=== PATIENT | male | born 1935 | race Caucasian/White ===

== ENCOUNTER 2016-06-22 12:01 | Emergency (ER) | payer MEDICARE ==
--- NOTE | 2016-06-22 14:32 | CT ---
CT OF THE BRAIN WITHOUT CONTRAST: DATE: 06/22/16. FINDINGS: No intracranial bleeding or extraaxial hematoma was seen. The ventricles are normal in size for age and atrophy. There is no sign of stroke, mass, or edema. The calvarium appears intact. The sphen oid sinus and mastoid air cells are clear. There is obvious trauma around the right orbit and right maxillary sinus. See CT of the face to follow. IMPRESSION: No acute intracranial findings. See CT of the face to follow. POS: HOME
--- NOTE | 2016-06-22 15:14 | CT ---
CT OF THE FACIAL BONES: DATE: 06/22/16. FINDINGS: Spiral CT of the face was done following trauma. Axial slices were acquired, then coronal and sagit raciel reconstructions were done. There is a blowout fracture of the right orbit. The gap in the right inferior orbital wall is about 1.1 cm wide with fragments protruding into the right maxillary sinus. There is considerable bleedi ng in that sinus. Soft tissue air is seen in the periorbital region on the right, and there is air within the right orbit itself. The globe appears intact. The retroorbital areas show some air, but no other obvious damage. There may be a minimal fracture through the lateral wall of the right max illary sinus. The nasal bones and zygomatic arches are intact bilaterally. If there is a fracture of the lateral wall of the right orbit, it is minimal undisplaced. The medial wall appears intact. There is a small air-fluid level in the left maxillary sinus, but there is no obvious damage of this sinus or surrounding bones. The mandible appears intact. IMPRESSION: Blowout fracture of the right orbit as described above. There was no evidence of entrapment of soft tissue structures in the defect. Findings discussed with Dr. Mcgraw following scan. CODE CR POS: HOME
--- NOTE | 2016-06-22 15:38 | CT ---
CT OF THE CERVICAL SPINE: DATE: 06/22/16. FINDINGS: Spiral CT of the cervical spine was done emergently following trauma. Axial slices were acquired, t hen coronal reconstructions were done. Sagittal reconstructions were done as well. No acute fracture, dislocation, or acute bony change was appreciated. 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 The disk spaces are largely preserved. Some ossification in the ligamentum nuchae is s een. The C1 to dens distance is normal. The soft tissues are normal in thickness. Findings by frannie el follow: C1-C2: No acute findings. C2-C3: No acute findings. 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 Minor left foraminal narrowing. C4-C5: There is a large central posterior osteophyte that impinges upon the thecal sac at this level. This narrows t he AP diameter of the spinal canal to about 9 mm. The foramina are patent, though the left foramen is minimally narrower than the right. C5-C6: Once again, there is a central posterior osteophyte that impinges upon the thecal sac. Neve ping, the AP diameter here is nearly 12 mm. There is no foraminal stenosis. C6-C7: Some posterior osteophyte, though the narrowing of the AP diameter of the spinal canal is pr obably not significant as it measures about 13 mm. There is some slight bilateral foraminal narrowi ng due to osteophytes. C7-T1: No acute findings. T1-T2: No acute findings. The lung apices are clear and show no pneumothorax. IMPRESSION: Severe degenerative changes as noted, but no acute traumatic findings. POS: HOME
[2016-06-22] MEDS ORDERED: Lidocaine 1% 20 ML MDV ONE (15:40)
[2016-06-22] MEDS ORDERED: Adacel (T-DAP) 0.5 ML VIAL ONE (15:53)
[2016-06-22 16:33] LABS: #Lymphocytes 0.7 thou/uL (1.20-3.40); #Monocytes 0.4 thou/uL (0.11-0.59); #Neutrophils 8.3 thou/uL (1.40-6.50); %Basophils 0.3 % (0.0-1.0); %Eosinophils 0.3 % (0.0-10.0); %Monocytes 4.2 % (0.0-10.0); Mean Platelet Volume 6.3 fL (7.4-10.4); Red Blood Cell (RBC) Count 4.66 mill/uL (4.70-6.10); White Blood Cell (WBC) Count 9.4 thou/uL (4.8-10.8)
[2016-06-22 16:41] LABS: ALT (SGPT) 20 U/L (0-55); AST (SGOT) 27 U/L (5-34); Alkaline Phosphatase 70 U/L (40-150); Anion Gap 15 mmol/L (10-20); BUN (Urea Nitrogen) 19 mg/dL (8.4-25.7); Calc. Creatinine Clearance 0 mL/min (70-130); Carbon Dioxide 25 mmol/L (23-31); Chloride 104 mmol/L (98-107); Estimated GFR-MDRD 75; Globulin 2.8 g/dL (2.4-3.5); Protein, Total 6.9 g/dL (5.8-8.1)
[2016-06-22 16:45] LABS: Troponin I Less than 0.010 ng/mL (< 0.028)
== END 2016-06-22 17:52 | disposition home or self-care (01) ==
LOC: BURERS 12:01
DX: S02.81XA Fracture of other specified skull and facial bones, right side, initial encounter for closed fracture (principal); S01.01XA Laceration without foreign body of scalp, initial encounter; I95.2 Hypotension due to drugs; Z79.899 Other long term (current) drug therapy; X58.XXXA Exposure to other specified factors, initial encounter
CPT/HCPCS: 70450; 70486; 72125; 80053; 82553; 84484; 85025; 90471; 90715; 93005; 96360; J2001

== ENCOUNTER 2016-06-26 10:01 | Outpatient (CLI) | payer MEDICARE ==
[2016-06-26 11:05] LABS: #Eosinphils 0.3 thou/uL (0.0-0.7); #Monocytes 0.4 thou/uL (0.11-0.59); #Neutrophils 3.5 thou/uL (1.40-6.50); %Basophils 0.6 % (0.0-1.0); %Monocytes 7.7 % (0.0-10.0); ALT (SGPT) 24 U/L (0-55); AST (SGOT) 25 U/L (5-34); Alkaline Phosphatase 74 U/L (40-150); Anion Gap 11 mmol/L (10-20); BUN (Urea Nitrogen) 15 mg/dL (8.4-25.7); Bilirubin, Total 0.5 mg/dL (0.2-1.2); Calc. Creatinine Clearance 0 mL/min (70-130); Carbon Dioxide 29 mmol/L (23-31); Chloride 105 mmol/L (98-107); Estimated GFR-MDRD 77; Globulin 2.4 g/dL (2.4-3.5); Hematocrit 42.8 % (42.0-52.0); LDL Cholesterol, Calculated 94 mg/dL; Mean Platelet Volume 6.2 fL (7.4-10.4); Protein, Total 6.4 g/dL (5.8-8.1); Red Blood Cell (RBC) Count 4.53 mill/uL (4.70-6.10); White Blood Cell (WBC) Count 5.1 thou/uL (4.8-10.8)
== END 2016-06-26 10:02 | disposition home or self-care (01) ==
LOC: HPCALD 10:01
PROVIDERS: ATTEND Family Medicine
DX: Z13.6 Encounter for screening for cardiovascular disorders (principal); I10 Essential (primary) hypertension
CPT/HCPCS: 36415; 80053; 80061; 85025

== ENCOUNTER 2016-12-27 22:22 | Emergency (ER) | payer MEDICARE ==
[2016-12-27 22:54] LABS: #Lymphocytes 0.9 thou/uL (1.20-3.40); #Monocytes 0.7 thou/uL (0.11-0.59); #Neutrophils 2.9 thou/uL (1.40-6.50); %Basophils 0.6 % (0.0-1.0); %Eosinophils 0.6 % (0.0-10.0); %Lymphocytes 19.2 % (21.0-51.0); %Monocytes 14.9 % (0.0-10.0); %Neutrophils 64.8 % (42.0-75.0); Mean Corpuscular HGB CONC 34.5 g/dL (32.0-36.0); Mean Corpuscular Hemoglobin 31.8 pg (27.0-31.0); Mean Corpuscular Volume 92.2 fl (80.0-94.0); Mean Platelet Volume 6.4 fL (7.4-10.4); Platelet Count 144 thou/uL (130-400); RBC Distribution Width 11.9 % (11.5-14.5); Red Blood Cell (RBC) Count 4.41 mill/uL (4.70-6.10); White Blood Cell (WBC) Count 4.5 thou/uL (4.8-10.8)
[2016-12-27] MEDS ORDERED: Cephalexin 250 MG CAP ONE (23:03)
[2016-12-27 23:08] LABS: ALT (SGPT) 39 U/L (8-55); AST (SGOT) 44 U/L (5-34); Albumin 3.8 g/dL (3.4-4.8); Alkaline Phosphatase 99 U/L (40-150); Anion Gap 14 mmol/L (10-20); BUN (Urea Nitrogen) 24 mg/dL (8.4-25.7); Bilirubin, Total 0.6 mg/dL (0.2-1.2); CK (CPK) 175 U/L (30-200); Calc. Creatinine Clearance 0 mL/min (70-130); Calcium 9.8 mg/dL (7.8-10.44); Carbon Dioxide 23 mmol/L (23-31); Chloride 104 mmol/L (98-107); Estimated GFR-MDRD 65; Globulin 2.7 g/dL (2.4-3.5); Glucose 104 mg/dL (83-110); Potassium 3.9 mmol/L (3.5-5.1); Protein, Total 6.5 g/dL (5.8-8.1); Sodium 137 mmol/L (136-145)
== END 2016-12-27 23:22 | disposition home or self-care (01) ==
LOC: BURERS 22:22
DX: T63.331A Toxic effect of venom of brown recluse spider, accidental (unintentional), initial encounter (principal); L03.115 Cellulitis of right lower limb; G47.30 Sleep apnea, unspecified; I10 Essential (primary) hypertension; Z79.899 Other long term (current) drug therapy
CPT/HCPCS: 36415; 80053; 82550; 85025; 99283

== ENCOUNTER 2017-05-20 14:00 | Emergency (ER) | payer MEDICARE ==
[2017-05-20] MEDS ORDERED: HYDROcodone/Acetaminophen 10/325 mg Tablet ONE (14:31)
--- NOTE | 2017-05-20 15:25 | RAD ---
LEFT SHOULDER 3 VIEWS: DATE: 05/20/17. FINDINGS: A third-degree AC separation is seen with complete offset of the distal clavicle from the acromion. No fracture was visible. There is a question of some irregularity or flecks of bone near the inferio r lip of the glenoid fossa. This could signify a prior dislocation. IMPRESSION: Third-degree acromioclavicular separation. POS: HOME
== END 2017-05-20 14:59 | disposition home or self-care (01) ==
LOC: BURERS 14:00
DX: S43.102A Unspecified dislocation of left acromioclavicular joint, initial encounter (principal); I10 Essential (primary) hypertension; G47.30 Sleep apnea, unspecified; W17.89XA Other fall from one level to another, initial encounter

== ENCOUNTER 2018-12-22 15:04 | Outpatient (CLI) | payer MEDICARE ==
--- NOTE | 2018-12-22 18:16 | RAD ---
LEFT LEG TWO VIEWS: 12/22/18 No prior films were available for comparison. On the lateral view, there are several bony fragments in the distal Achilles region at about the leve l of the ankle joint. While I do not see the entire calcaneus on this view, my suspicion is that they may have been avulsed off the insertion of the Achilles tendon on the calcaneus. I cannot exclude an Achilles rupture. A large calcaneal spur was evident. No acute findings were appreciated in the tibi a or fibula. Some cortical/periosteal prominence in the mid tibial shaft does not appear acute and is very likely longstanding. IMPRESSION: Several fragments in the distal Achilles region posterior to the ankle joint. Suspicion that they may have been avulsed off of the insertion point on the calcaneus. Rule out ruptured Achilles tendon. Code T POS: HOME
== END 2018-12-22 15:05 | disposition home or self-care (01) ==
LOC: BURRAD 15:04
PROVIDERS: ATTEND Family Medicine
DX: M79.605 Pain in left leg (principal)

== ENCOUNTER 2020-07-26 11:18 | Outpatient (CLI) | payer MEDICARE | END 2020-07-26 11:19 | disposition home or self-care (01) | LOC: BURRAD 11:18 | PROVIDERS: ATTEND Family Medicine | DX: M54.5 Low back pain (principal); M51.36 Other intervertebral disc degeneration, lumbar region; M46.96 Unspecified inflammatory spondylopathy, lumbar region | CPT/HCPCS: 72100 ==